=== PATIENT | female | born 1955 ===

== ENCOUNTER 2016-08-07 10:30 | Outpatient (RCR) | payer OTHER | END 2016-08-29 | disposition home or self-care (01) | LOC: WCC 10:30 | DX: L97.514 Non-pressure chronic ulcer of other part of right foot with necrosis of bone (principal); M86.171 Other acute osteomyelitis, right ankle and foot; E10.621 Type 1 diabetes mellitus with foot ulcer; Z88.2 Allergy status to sulfonamides; I10 Essential (primary) hypertension; I50.9 Heart failure, unspecified; Z79.82 Long term (current) use of aspirin | CPT/HCPCS: 82962; G0277 ==

== ENCOUNTER 2017-04-25 08:57 | Outpatient (RCR) | payer OTHER | END 2017-04-28 | disposition home or self-care (01) | LOC: WCC 08:57 | DX: E11.621 Type 2 diabetes mellitus with foot ulcer (principal); E11.40 Type 2 diabetes mellitus with diabetic neuropathy, unspecified; L97.402 Non-pressure chronic ulcer of unspecified heel and midfoot with fat layer exposed; Z90.11 Acquired absence of right breast and nipple; I11.0 Hypertensive heart disease with heart failure; I50.9 Heart failure, unspecified; Z88.2 Allergy status to sulfonamides ==

== ENCOUNTER → 2017-04-25 | Outpatient (CLI) | payer OTHER ==
--- NOTE | 2017-04-25 16:27 | Diagnostic Imaging Report ---
Indication: SORE toe ulcer, soreness and pain Technique: 3 views of the right foot Comparison: None Findings: Destructive changes of the terminal tuft of the first distal phalanx are noted. Adjacent soft tissue ulcer is noted No other evidence of osseous erosions or osteolytic process. There are marked degenerative changes of the first metatarsal phalangeal joint. There are less severe degenerative changes of the first tarsometatarsal joint. There are also degenerative changes of the articulation between the head of the first metacarpal and its largest sesamoid. Deformity of the head of the first metatarsal probably reflects degenerative remodeling, but could also indicate chronic posttraumatic changes. There are small plantar and calcaneal spurs. There are vascular calcifications. There is hammertoe deformity of all of the digits Impression: Destructive changes of the terminal tuft of the first distal phalanx, worrisome for osteomyelitis. Correlate with clinical findings. There is an associated soft tissue ulcer No other findings to suggest acute osteomyelitis demonstrated. Note, however, limited sensitivity of plain radiographs for such Degenerative changes, as described Deformities as described
== END | disposition home or self-care (01) ==
LOC: RAD 10:03
DX: L97.519 Non-pressure chronic ulcer of other part of right foot with unspecified severity (principal); M77.51 Other enthesopathy of right foot and ankle